=== PATIENT | female | born 1960 | race Caucasian/White ===

== ENCOUNTER 2023-11-05 09:47 | Day surgery (SDC) | payer OTHER ==
[2023-11-05] MEDS ORDERED: BUPIVACAINE 0.5% VIAL IJ ONE (09:48)
[2023-11-05] MEDS ORDERED: Depo-Medrol 40 MG/ML IM ONE (09:48)
[2023-11-05] MEDS ORDERED: Lactated Ringers 1,000 ML IV ONE (12:17)
[2023-11-05] MEDS ORDERED: DIPRIVAN 200 MG/20 ML IV ONE (12:36)
--- NOTE | 2023-11-05 14:53 | XRAY ---
Indication: Right SI joint injection. Intraoperative fluoroscopy provided for 11 seconds. Single digital spot image submitted for interpretation demonstrates posterior needle tip projecting over the right SI joint. Small amount of contrast injected for needle tip placement. Correlate with intraoperative findings/report.
--- NOTE | 2023-11-05 15:19 | XRAY ---
11 seconds of fluoroscopy was used in surgery for a right sacroiliac joint injection.
== END 2023-11-05 13:05 | disposition home or self-care (01) ==
LOC: SDC-PAIN 09:47
PROVIDERS: ATTEND Psychiatry & Neurology Pain Medicine
DX: M46.1 Sacroiliitis, not elsewhere classified (principal)
CPT/HCPCS: 01992; 27096; 72170; 77002; G0260; J1010; J2704; Q9966

== ENCOUNTER 2023-12-17 11:21 | Day surgery (SDC) | payer OTHER ==
[2023-12-17] MEDS ORDERED: Xylocaine-Mpf 2% 5 Ml Vial IJ ONE (11:22)
[2023-12-17] MEDS ORDERED: DIPRIVAN 200 MG/20 ML IV ONE (13:33)
--- NOTE | 2023-12-17 14:32 | XRAY ---
Indication: Right C2-C4 MBB. Intraoperative fluoroscopy provided for 15 second. 2 digital spot image submitted for interpretation demonstrates posterior needle tips projecting over the expected right C2-C4 nerve roots. Correlate with intraoperative findings/report.
[2023-12-17] MEDS ORDERED: Lactated Ringers 1,000 ML IV ONE (15:02)
--- NOTE | 2023-12-17 15:04 | XRAY ---
15 seconds of fluoroscopy was used in surgery for a right C2-C4 MBB.
== END 2023-12-17 14:08 | disposition home or self-care (01) ==
LOC: SDC-PAIN 11:21
PROVIDERS: ATTEND Psychiatry & Neurology Pain Medicine
DX: M47.812 Spondylosis without myelopathy or radiculopathy, cervical region (principal)
CPT/HCPCS: 64490; 64491; 72040; 77002; J2704

== ENCOUNTER → 2024-01-07 | Day surgery (SDC) | payer OTHER ==
[~2024-01-07] MED LIST: BUPIVACAINE 0.5% VIAL IJ ONE; DIPRIVAN 200 MG/20 ML IV ONE; Lactated Ringers 1,000 ML IV ONE
--- NOTE | 2024-01-07 16:35 | XRAY ---
Indication: Right C2-C4 MBB. Intraoperative fluoroscopy provided for 11 seconds. 3 digital spot image submitted for interpretation demonstrates posterior needle tips projecting over the expected right C2-C4 nerve roots. Correlate with intraoperative findings/report.
--- NOTE | 2024-01-07 20:10 | XRAY ---
11 seconds of fluoroscopy was used in surgery for a right C2-C4 MBB.
== END ==
LOC: SDC-PAIN 12:17
PROVIDERS: ATTEND Psychiatry & Neurology Pain Medicine
DX: M47.812 Spondylosis without myelopathy or radiculopathy, cervical region (principal)
CPT/HCPCS: 64490; 64491; 72040; 77002; J2704

== ENCOUNTER 2024-01-29 13:24 | Day surgery (SDC) | payer OTHER ==
[2024-01-29] MEDS ORDERED: LIDOCAINE HCL 1% 50 MG/5 ML VL PF IJ ONE (13:25)
[2024-01-29] MEDS ORDERED: Decadron 4 MG INJ IV ONE (13:25)
[2024-01-29] MEDS ORDERED: BUPIVACAINE 0.5% VIAL IJ ONE (13:25)
[2024-01-29] MEDS ORDERED: Lactated Ringers 1,000 ML IV ONE (15:45)
[2024-01-29] MEDS ORDERED: DIPRIVAN 200 MG/20 ML IV ONE (15:57)
--- NOTE | 2024-01-29 16:54 | XRAY ---
Indication: Right C2-C4 RFA. Intraoperative fluoroscopy provided for 23 seconds. 3 digital spot image submitted for interpretation demonstrates posterior needle tips projecting over the expected right C2-C4 nerve roots. Correlate with intraoperative findings/report.
--- NOTE | 2024-01-29 17:32 | XRAY ---
23 seconds of fluoroscopy was used in surgery for a right C2-C4 RFA.
== END 2024-01-29 16:35 | disposition home or self-care (01) ==
LOC: SDC-PAIN 13:24
PROVIDERS: ATTEND Psychiatry & Neurology Pain Medicine
DX: M47.812 Spondylosis without myelopathy or radiculopathy, cervical region (principal)
CPT/HCPCS: 64633; 64634; 72040; 77002; J1100; J2001; J2704

== ENCOUNTER 2024-02-04 13:34 | Day surgery (SDC) | payer OTHER ==
[2024-02-04] MEDS ORDERED: LIDOCAINE HCL 1% 50 MG/5 ML VL PF IJ ONE (13:35)
[2024-02-04] MEDS ORDERED: BUPIVACAINE 0.5% VIAL IJ ONE (13:35)
[2024-02-04] MEDS ORDERED: Decadron 4 MG INJ IV ONE (13:35)
[2024-02-04] MEDS ORDERED: Lactated Ringers 1,000 ML IV ONE (15:33)
--- NOTE | 2024-02-04 19:56 | XRAY ---
Indication: Left C2-C4 RFA Intraoperative fluoroscopy provided for 26 seconds. 2 digital spot image submitted for interpretation demonstrates posterior needle tips projecting over the expected left C2-C4 nerve roots. Correlate with intraoperative findings/report.
--- NOTE | 2024-02-05 21:05 | XRAY ---
26 seconds of fluoroscopy was used in surgery for a left C2-C4 RFA.
== END 2024-02-04 16:54 | disposition home or self-care (01) ==
LOC: SDC-PAIN 13:34
PROVIDERS: ATTEND Psychiatry & Neurology Pain Medicine
DX: M47.812 Spondylosis without myelopathy or radiculopathy, cervical region (principal)
CPT/HCPCS: 64633; 64634; 72040; 77002; J1100; J2001